=== PATIENT | male | born 1945 | race Caucasian/White ===

== ENCOUNTER 2016-08-29 09:11 | Inpatient (IN) | payer OTHER, BC ==
[~2016-08-29] VITALS: Ht 177.8 cm; Wt 132.0 kg
[~2016-08-29 09:11] MED LIST: ALLEGRA ALLERGY60 MG PO; ALLEGRA180 MG PO; ALPRAZOLAM0.25 MG PO; ASPIRIN E.C.81 M1 PO; ASPIRIN81 M1 PO; COUMADIN5 MG PO; COZAAR100 MG PO; Cardizem PO; Colchicine,Colcrys PO; DIGOXIN250 MCG PO; FUROSEMIDE40 MG PO; Flora-Q,Risaquad PO; GERITOL COMP1 TABLET PO; INDOMETHACIN25 MG PO; IRON325 M1 PO; LANOXIN,DIGIT0.25 MG PO; LASIX40 MG PO; LASIX80 MG PO; LIPITOR80 MG PO; LOPRESSOR25 MG PO; LOW DOSE ASPIRI81 M2 PO; Lasix PO; Levaquin PO; Lopressor PO; METAMUCIL CAPSU1 CAP PO; METOPROLOL SUCC25 MG PO; METOPROLOL TAR100 MG PO; METOPROLOL TART25 MG PO; MUCINEX1200 MG PO; NORVASC10 MG PO; OMEPRAZOLE40 M1 PO; Pradaxa PO; Prilosec PO; TIAZAC360 MG PO; TYLENOL EXTRA500 MG PO; Ultram PO; XARELTO15 MG PO; ZESTRIL,PRINIVI40 MG PO; ZYLOPRIM300 MG PO
[2016-08-29 09:43] LABS: HEMATOCRIT 47.4 % (38.0-50.0); MCHC 33.3 G/DL (30.0-36.0); MEAN PLAT.VOLUME 9.4 uM^3 (9.0-12.4); PLATELET COUNT 135 K/uL (156-360); RBC DIS.WIDTH-CV 14.7 % (11.8-14.6); RBC DIS.WIDTH-SD 48.6 % (39-53); RED BLOOD COUNT 4.94 M/uL (4.00-5.50); WHITE BLOOD COUNT 12.7 K/uL (4.1-10.2)
[2016-08-29 09:53] LABS: CHLORIDE 104 mEq/L (99-109); SODIUM 141 mEq/L (136-147)
[2016-08-29 09:54] LABS: GLUCOSE 121 mg/dL (70-99)
[2016-08-29 09:56] LABS: ANION GAP 14 MEQ/L (2-14)
[2016-08-29 09:58] LABS: GFR ESTIMATE (CALCULATED) 40 mL/min/
[2016-08-29 09:59] LABS: UREA NITROGEN (BUN) 25 mg/dL (9-23)
[2016-08-29] MEDS ORDERED: CARDIZEM CD,CA240 MG PO (12:50)
[2016-08-29 13:52] LABS: TROP-I INTERPRETATION NEGATIVE; TROPONIN-I 0.05 ng/mL (0.0-0.30)
[2016-08-29] MEDS ORDERED: ARTHRO PO (15:59)
[2016-08-29 17:33] VITALS: BP 145/96
[2016-08-29 19:47] VITALS: BP 109/69
[2016-08-29 22:04] VITALS: BP 131/95
[2016-08-30 00:52] VITALS: BP 140/88
[2016-08-30 04:25] VITALS: BP 148/91
[2016-08-30 07:07] LABS: HEMATOCRIT 46.2 % (38.0-50.0); MCH 31.6 PG (29.0-34.0); MCHC 32.3 G/DL (30.0-36.0); MCV 98.1 FL (86-99); PLATELET COUNT 136 K/uL (156-360); RBC DIS.WIDTH-CV 14.7 % (11.8-14.6); RED BLOOD COUNT 4.71 M/uL (4.00-5.50); WHITE BLOOD COUNT 10.6 K/uL (4.1-10.2)
[2016-08-30 07:36] LABS: ANION GAP 11 MEQ/L (2-14); CHLORIDE 102 MEQ/L (99-109); GFR ESTIMATE (CALCULATED) 49 mL/min/; GLUCOSE 108 mg/dL (70-99); POTASSIUM 3.8 MEQ/L (3.7-5.4); SAMPLE HEMOLYSIS CHECK 0; SAMPLE ICTERIC CHECK 1; SAMPLE LIPEMIA CHECK 0; SODIUM 140 MEQ/L (136-147); UREA NITROGEN (BUN) 29 mg/dL (9-23)
[2016-08-30 07:48] VITALS: BP 137/85
[2016-08-30 11:42] VITALS: BP 141/98
[2016-08-30 15:39] VITALS: BP 135/83
[2016-08-30 20:08] VITALS: BP 137/97
[2016-08-31 00:35] VITALS: BP 145/98
[2016-08-31 04:09] VITALS: BP 141/91
[2016-08-31 07:45] VITALS: BP 143/95
[2016-08-31 08:44] LABS: HEMATOCRIT 47.1 % (38.0-50.0); MCH 32.3 PG (29.0-34.0); MCHC 32.7 G/DL (30.0-36.0); MCV 98.7 FL (86-99); PLATELET COUNT 132 K/uL (156-360); RBC DIS.WIDTH-CV 14.7 % (11.8-14.6); RBC DIS.WIDTH-SD 52.7 % (39-53); RED BLOOD COUNT 4.77 M/uL (4.00-5.50); WHITE BLOOD COUNT 9.3 K/uL (4.1-10.2)
[2016-08-31 09:07] LABS: ANION GAP 9 MEQ/L (2-14); CHLORIDE 101 MEQ/L (99-109); GFR ESTIMATE (CALCULATED) 46 mL/min/; GLUCOSE 107 mg/dL (70-99); SAMPLE HEMOLYSIS CHECK 0; SAMPLE ICTERIC CHECK 0; SAMPLE LIPEMIA CHECK 0; SODIUM 141 MEQ/L (136-147); UREA NITROGEN (BUN) 32 mg/dL (9-23)
[2016-08-31 11:32] VITALS: BP 133/85
[2016-08-31 15:16] VITALS: BP 136/79
[2016-08-31 19:58] VITALS: BP 115/87
[2016-09-01] VITALS: BP 145/82; BP 172/98
[2016-09-01 05:08] VITALS: BP 152/78
[2016-09-01 07:31] VITALS: BP 136/89
[2016-09-01 09:07] LABS: ANION GAP 10 MEQ/L (2-14); CHLORIDE 102 MEQ/L (99-109); GFR ESTIMATE (CALCULATED) 49 mL/min/; GLUCOSE 92 mg/dL (70-99); POTASSIUM 4.1 MEQ/L (3.7-5.4); SAMPLE HEMOLYSIS CHECK 0; SAMPLE ICTERIC CHECK 0; SAMPLE LIPEMIA CHECK 0; SODIUM 142 MEQ/L (136-147); UREA NITROGEN (BUN) 29 mg/dL (9-23)
[2016-09-01 11:02] VITALS: BP 136/89
[2016-09-01] MEDS ORDERED: FUROSEMIDE40 MG PO (11:47)
[2016-09-01] MEDS ORDERED: LISINOPRIL5 MG PO (11:47)
[2016-09-01] MEDS ORDERED: SPIRONOLACTONE25 MG PO (11:47)
== END 2016-09-01 13:50 | disposition home or self-care (01) | DRG 291 ==
LOC: EME 09:11 → 5SOUTH 15:22 → EDOF 15:22 → 5SOUTH 15:22
PROVIDERS: Emergency Medicine; Hospitalist; Internal Medicine Cardiovascular Disease; Physician Assistant; Physician Assistant Medical
DX: I13.0 Hypertensive heart and chronic kidney disease with heart failure and stage 1 through stage 4 chronic kidney disease, or unspecified chronic kidney disease (principal); I50.43 Acute on chronic combined systolic (congestive) and diastolic (congestive) heart failure; D69.6 Thrombocytopenia, unspecified; Z68.41 Body mass index [BMI] 40.0-44.9, adult; N18.3 Chronic kidney disease, stage 3 (moderate); I48.1 Persistent atrial fibrillation; E66.01 Morbid (severe) obesity due to excess calories; Z95.2 Presence of prosthetic heart valve; Z91.19 Patient's noncompliance with other medical treatment and regimen; Z66 Do not resuscitate; R09.02 Hypoxemia; Z90.49 Acquired absence of other specified parts of digestive tract; K59.00 Constipation, unspecified
CPT/HCPCS: 71020; 80048; 84484; 85027; 93005; 93306; 94799; 99281; 99284; J1940

== ENCOUNTER 2016-10-18 08:19 | Inpatient (IN) | payer OTHER, BC ==
[~2016-10-18] VITALS: Ht 177.8 cm; Wt 125.9 kg
[~2016-10-18 08:19] MED LIST changes: +ARTHRO PO; +CARDIZEM CD,CA240 MG PO; +LISINOPRIL5 MG PO; +SPIRONOLACTONE25 MG PO
[2016-10-18 08:54] LABS: EOSINOPHIL (%) 0.7 % (0-5); EOSINOPHIL COUNT 0.1 K/uL (0-0.3); HEMATOCRIT 52.7 % (38.0-50.0); IMMATURE GRANULOCYTE (%) 1.3 % (0.0-0.7); IMMATURE GRANULOCYTE COUNT 1.2 K/uL; LYMPHOCYTE COUNT 1.2 K/uL (1.0-2.8); MCH 31.6 PG (29.0-34.0); MCHC 32.6 G/DL (30.0-36.0); MCV 96.7 FL (86-99); MEAN PLAT.VOLUME 10.6 uM^3 (9.0-12.4); MONOCYTE (%) 13.3 % (3-12); MONOCYTE COUNT 1.3 K/uL (0-0.8); NEUTROPHIL (%) 72.3 % (45-76); NEUTROPHIL COUNT 6.9 K/uL (1.8-6.4); PLATELET COUNT 101 K/uL (156-360); RBC DIS.WIDTH-CV 14.9 % (11.8-14.6); RED BLOOD COUNT 5.45 M/uL (4.00-5.50); WHITE BLOOD COUNT 9.6 K/uL (4.1-10.2)
[2016-10-18 09:05] LABS: CHLORIDE 102 mEq/L (99-109); POTASSIUM 4.9 mEq/L (3.7-5.4); SODIUM 138 mEq/L (136-147)
[2016-10-18 09:06] LABS: INTER. NORMALIZED RATIO 1.5; PROTHROMBIN TIME 15.1 (9.2-11.2)
[2016-10-18 09:08] LABS: GLUCOSE 120 mg/dL (70-99)
[2016-10-18 09:09] LABS: ANION GAP 13 MEQ/L (2-14)
[2016-10-18 09:10] LABS: TOTAL BILIRUBIN 1.7 mg/dL (0.0-1.0)
[2016-10-18 09:11] LABS: ALKALINE PHOSPHATASE 100 IU/L (3-129)
[2016-10-18 09:12] LABS: GFR ESTIMATE (CALCULATED) 21 mL/min/
[2016-10-18 09:13] LABS: UREA NITROGEN (BUN) 58 mg/dL (9-23)
[2016-10-18 09:18] LABS: TROP-I INTERPRETATION NEGATIVE; TROPONIN-I 0.08 ng/mL (0.0-0.30)
[2016-10-18 09:39] LABS: INFLUENZA A VIRAL ANTIGEN NEGATIVE; INFLUENZA B VIRAL ANTIGEN NEGATIVE
[2016-10-18] MEDS ORDERED: LISINOPRIL10 MG PO (10:57)
[2016-10-18] MEDS ORDERED: LASIX40 MG PO (10:59)
[2016-10-18] MEDS ORDERED: TYLENOL ARTHRI650 MG PO (11:00)
[2016-10-18 14:03] LABS: ADD MIUA? NO; BILIRUBIN NEGATIVE; BLOOD NEGATIVE; COLOR YELLOW ((YELLOW)); GLUCOSE (STRIP) NEGATIVE; KETONES NEGATIVE; LEUKOCYTES NEGATIVE; NITRITE NEGATIVE; PROTEIN (STRIP) 30; UROBILINOGEN 0.2 MG/DL (0.2-1.0)
[2016-10-18 15:36] LABS: TROP-I INTERPRETATION NEGATIVE; TROPONIN-I 0.08 ng/mL (0.0-0.30)
[2016-10-18 19:25] VITALS: BP 132/90
[2016-10-18 21:53] LABS: TROP-I INTERPRETATION NEGATIVE; TROPONIN-I 0.11 ng/mL (0.0-0.30)
[2016-10-19 00:30] VITALS: BP 121/88
[2016-10-19 04:27] VITALS: BP 113/73
[2016-10-19 07:37] LABS: HEMATOCRIT 51.1 % (38.0-50.0); MCH 32.5 PG (29.0-34.0); MCHC 32.5 G/DL (30.0-36.0); MEAN PLAT.VOLUME 11.5 uM^3 (9.0-12.4); PLATELET COUNT 91 K/uL (156-360); RBC DIS.WIDTH-CV 14.8 % (11.8-14.6); RED BLOOD COUNT 5.11 M/uL (4.00-5.50); WHITE BLOOD COUNT 8.5 K/uL (4.1-10.2)
[2016-10-19 07:41] LABS: ALKALINE PHOSPHATASE 83 IU/L (3-129); ANION GAP 11 MEQ/L (2-14); CHLORIDE 99 MEQ/L (99-109); GFR ESTIMATE (CALCULATED) 23 mL/min/; GLUCOSE 99 mg/dL (70-99); POTASSIUM 4.9 MEQ/L (3.7-5.4); SAMPLE HEMOLYSIS CHECK 0; SAMPLE ICTERIC CHECK 0; SAMPLE LIPEMIA CHECK 0; SODIUM 139 MEQ/L (136-147); TOTAL BILIRUBIN 2.1 MG/DL (0.0-1.0); UREA NITROGEN (BUN) 63 mg/dL (9-23)
[2016-10-19 09:00] VITALS: BP 120/80
[2016-10-19 12:00] VITALS: BP 123/86
[2016-10-19 18:20] VITALS: BP 102/75
[2016-10-19 20:25] VITALS: BP 121/73
[2016-10-20 00:29] VITALS: BP 110/77
[2016-10-20 05:29] VITALS: BP 121/87
[2016-10-20 07:21] LABS: DELETE MACHINE DIFF? YES
[2016-10-20 07:22] LABS: HEMATOCRIT 51.6 % (38.0-50.0); MCH 31.5 PG (29.0-34.0); MCV 98.5 FL (86-99); RBC DIS.WIDTH-SD 54.1 % (39-53); RED BLOOD COUNT 5.24 M/uL (4.00-5.50); WHITE BLOOD COUNT 8.4 K/uL (4.1-10.2)
[2016-10-20 07:30] VITALS: BP 117/82
[2016-10-20 07:49] LABS: ANION GAP 11 MEQ/L (2-14); CHLORIDE 98 MEQ/L (99-109); GFR ESTIMATE (CALCULATED) 27 mL/min/; GLUCOSE 84 mg/dL (70-99); MAGNESIUM 2.2 mg/dl (1.3-2.7); POTASSIUM 4.2 MEQ/L (3.7-5.4); SAMPLE HEMOLYSIS CHECK 0; SAMPLE ICTERIC CHECK 0; SAMPLE LIPEMIA CHECK 0; SODIUM 137 MEQ/L (136-147); UREA NITROGEN (BUN) 60 mg/dL (9-23)
[2016-10-20 08:42] LABS: ANISOCYTOSIS 1+; MEAN PLAT.VOLUME 11.2 uM^3 (9.0-12.4); PLAT.SUFFICIENCY DECREASED; PLATELET COUNT 100 K/uL (156-360); SMUDGE CELLS 0; USER ID STC
[2016-10-20 11:29] VITALS: BP 107/67
[2016-10-20 14:45] LABS: HBSG INDEX 0.19
[2016-10-20 14:46] LABS: HPCA INDEX 0.15
[2016-10-20 14:47] LABS: ANTI-HEPATITIS A VIRUS (IGM) Nonreactive; HAV INDEX 0.13
[2016-10-20 14:48] LABS: ANTI-HEPATITIS B CORE (IGM) Nonreactive; HBC IgM INDEX 0.07
[2016-10-20] MEDS ORDERED: SPIRONOLACTONE50 MG PO (15:30)
[2016-10-20] MEDS ORDERED: METOLAZONE2.5 MG PO (15:31)
== END 2016-10-20 17:22 | disposition home or self-care (01) | DRG 291 ==
LOC: EME 08:19 → 4EAST 10:25 → EDOF 10:25 → 4EAST 19:16
PROVIDERS: Emergency Medicine; Internal Medicine; Internal Medicine Nephrology
DX: I13.0 Hypertensive heart and chronic kidney disease with heart failure and stage 1 through stage 4 chronic kidney disease, or unspecified chronic kidney disease (principal); I50.43 Acute on chronic combined systolic (congestive) and diastolic (congestive) heart failure; N17.9 Acute kidney failure, unspecified; I95.9 Hypotension, unspecified; Q61.3 Polycystic kidney, unspecified; I27.2 Other secondary pulmonary hypertension; N18.3 Chronic kidney disease, stage 3 (moderate); I48.2 Chronic atrial fibrillation; K74.60 Unspecified cirrhosis of liver; Z95.2 Presence of prosthetic heart valve; Z79.01 Long term (current) use of anticoagulants; E66.9 Obesity, unspecified; Z68.36 Body mass index [BMI] 36.0-36.9, adult
CPT/HCPCS: 71010; 71250; 76770; 80048; 80053; 80074; 81003; 83605; 83735; 83880; 84100; 84443; 84484; 85025; 85027; 85610; 87502; 93005; 93306; 94799; 99281; 99285; J1160; J1940

== ENCOUNTER 2017-07-21 00:41 | Inpatient (IN) | payer OTHER, BC ==
[~2017-07-21] VITALS: Ht 175.3 cm; Wt 128.3 kg
[~2017-07-21 00:41] MED LIST changes: +LASIX20 MG PO; +LISINOPRIL10 MG PO; +METOLAZONE2.5 MG PO; +METOLAZONE5 MG PO; +SPIRONOLACTONE50 MG PO; +TYLENOL ARTHRI650 MG PO
[2017-07-21 01:31] LABS: PROTHROMBIN TIME 33.9 SEC (10.2-12.9)
[2017-07-21 01:34] LABS: PTT 40.2 SEC (25-37)
[2017-07-21 01:38] LABS: CHLORIDE 106 mEq/L (99-109); HEMATOCRIT 48.7 % (38.0-50.0); MCH 31.9 PG (29.0-34.0); MCHC 32.9 G/DL (30.0-36.0); MCV 97.2 FL (86-99); MEAN PLAT.VOLUME 10.5 uM^3 (9.0-12.4); PLATELET COUNT 137 K/uL (156-360); POTASSIUM 4.1 mEq/L (3.7-5.4); RBC DIS.WIDTH-CV 14.6 % (11.8-14.6); RBC DIS.WIDTH-SD 51.3 % (39-53); RED BLOOD COUNT 5.01 M/uL (4.00-5.50); SODIUM 138 mEq/L (136-147); WHITE BLOOD COUNT 10.1 K/uL (4.1-10.2)
[2017-07-21 01:40] LABS: GLUCOSE 121 mg/dL (70-99)
[2017-07-21 01:41] LABS: ANION GAP 14 MEQ/L (2-14)
[2017-07-21 01:44] LABS: GFR ESTIMATE (CALCULATED) 27 mL/min/
[2017-07-21 01:45] LABS: UREA NITROGEN (BUN) 53 mg/dL (9-23)
[2017-07-21 01:47] LABS: TROP-I INTERPRETATION NEGATIVE; TROPONIN-I 0.09 ng/mL (0.0-0.30)
[2017-07-21 04:22] VITALS: BP 121/87
[2017-07-21 07:14] LABS: TROP-I INTERPRETATION NEGATIVE; TROPONIN-I 0.08 ng/mL (0.0-0.30)
[2017-07-21 07:21] VITALS: BP 121/84
[2017-07-21 07:52] LABS: HDL CHOLESTEROL 18 MG/DL (Desirable>=40); LDL CHOLESTEROL 86 mg/dL (Desirable<100); NON-HDL CHOLESTEROL 106 mg/dL (Desirable<160); TOTAL CHOLESTEROL 124 mg/dL (Desirable<200); TRIGLYCERIDES 101 MG/DL (Normal: <150)
[2017-07-21 11:33] VITALS: BP 138/82
[2017-07-21 14:41] LABS: TROP-I INTERPRETATION NEGATIVE; TROPONIN-I 0.06 ng/mL (0.0-0.30)
[2017-07-21 15:16] VITALS: BP 119/92
[2017-07-21 19:05] VITALS: BP 129/82
[2017-07-21 20:45] LABS: METH RESISTANT S AUREUS PCR NEGATIVE (NEGATIVE)
[2017-07-21 20:57] LABS: PROBE CHECK PASS; SPECIMEN PROCESSING CONTROL PASS
[2017-07-21 23:48] VITALS: BP 138/98
[2017-07-22 04:13] VITALS: BP 128/83
[2017-07-22 05:57] LABS: ANION GAP 12 MEQ/L (2-14); CHLORIDE 104 MEQ/L (99-109); GFR ESTIMATE (CALCULATED) 27 mL/min/; GLUCOSE 116 mg/dL (70-99); POTASSIUM 4.6 MEQ/L (3.7-5.4); SAMPLE HEMOLYSIS CHECK 1; SAMPLE ICTERIC CHECK 0; SAMPLE LIPEMIA CHECK 0; SODIUM 140 MEQ/L (136-147); UREA NITROGEN (BUN) 61 mg/dL (9-23)
[2017-07-22 07:59] VITALS: BP 140/81
[2017-07-22 11:13] VITALS: BP 118/80
[2017-07-22 16:30] VITALS: BP 143/76
[2017-07-22 19:22] VITALS: BP 125/92
[2017-07-23] VITALS (7 sets, daily range): BP systolic 98–123; BP diastolic 60–93
[2017-07-23 05:19] LABS: BASOPHIL COUNT 0.1 K/uL (0-0.1); EOSINOPHIL (%) 1.1 % (0-5); EOSINOPHIL COUNT 0.1 K/uL (0-0.3); HEMATOCRIT 47.9 % (38.0-50.0); IMMATURE GRANULOCYTE (%) 0.4 % (0.0-0.7); IMMATURE GRANULOCYTE COUNT 0.1 K/uL; INSTRUMENT ABS NEUTROPHIL CT 9.4 K/uL; LYMPHOCYTE COUNT 1.2 K/uL (1.0-2.8); MCH 32.1 PG (29.0-34.0); MCHC 32.6 G/DL (30.0-36.0); MCV 98.6 FL (86-99); MEAN PLAT.VOLUME 10.8 uM^3 (9.0-12.4); MONOCYTE (%) 10.8 % (3-12); MONOCYTE COUNT 1.3 K/uL (0-0.8); NEUTROPHIL (%) 77.5 % (45-76); NEUTROPHIL COUNT 9.4 K/uL (1.8-6.4); PLATELET COUNT 143 K/uL (156-360); RBC DIS.WIDTH-CV 14.9 % (11.8-14.6); RBC DIS.WIDTH-SD 52.8 % (39-53); RED BLOOD COUNT 4.86 M/uL (4.00-5.50); WHITE BLOOD COUNT 12.1 K/uL (4.1-10.2)
[2017-07-23 06:02] LABS: ANION GAP 13 MEQ/L (2-14); CHLORIDE 102 MEQ/L (99-109); GFR ESTIMATE (CALCULATED) 23 mL/min/; GLUCOSE 101 mg/dL (70-99); POTASSIUM 5.2 MEQ/L (3.7-5.4); SAMPLE HEMOLYSIS CHECK 0; SAMPLE ICTERIC CHECK 0; SAMPLE LIPEMIA CHECK 0; SODIUM 139 MEQ/L (136-147); UREA NITROGEN (BUN) 68 mg/dL (9-23)
[2017-07-23 23:30] LABS: BASOPHIL COUNT 0.1 K/uL (0-0.1); EOSINOPHIL (%) 1.2 % (0-5); EOSINOPHIL COUNT 0.1 K/uL (0-0.3); HEMATOCRIT 47.2 % (38.0-50.0); IMMATURE GRANULOCYTE (%) 0.4 % (0.0-0.7); IMMATURE GRANULOCYTE COUNT 0.1 K/uL; INSTRUMENT ABS NEUTROPHIL CT 8.5 K/uL; LYMPHOCYTE COUNT 1.2 K/uL (1.0-2.8); MCH 31.6 PG (29.0-34.0); MCHC 32.2 G/DL (30.0-36.0); MCV 98.1 FL (86-99); MEAN PLAT.VOLUME 10.4 uM^3 (9.0-12.4); MONOCYTE (%) 11.1 % (3-12); MONOCYTE COUNT 1.2 K/uL (0-0.8); NEUTROPHIL (%) 76.5 % (45-76); NEUTROPHIL COUNT 8.5 K/uL (1.8-6.4); PLATELET COUNT 147 K/uL (156-360); RBC DIS.WIDTH-CV 14.7 % (11.8-14.6); RED BLOOD COUNT 4.81 M/uL (4.00-5.50); WHITE BLOOD COUNT 11.2 K/uL (4.1-10.2)
[2017-07-23 23:36] LABS: INTER. NORMALIZED RATIO 3.5; PROTHROMBIN TIME 40.1 SEC (10.2-12.9)
[2017-07-23 23:38] LABS: CHLORIDE 104 mEq/L (99-109); POTASSIUM 4.2 mEq/L (3.7-5.4); SODIUM 135 mEq/L (136-147)
[2017-07-23 23:41] LABS: GLUCOSE 115 mg/dL (70-99)
[2017-07-23 23:42] LABS: ANION GAP 9 MEQ/L (2-14)
[2017-07-23 23:43] LABS: TOTAL BILIRUBIN 2.1 mg/dL (0.0-1.0)
[2017-07-23 23:44] LABS: ALKALINE PHOSPHATASE 85 IU/L (3-129); GFR ESTIMATE (CALCULATED) 24 mL/min/
[2017-07-23 23:45] LABS: UREA NITROGEN (BUN) 73 mg/dL (9-23)
[2017-07-23 23:56] LABS: ERTH.SED.RATE 6 MM/HR (0-20)
[2017-07-24 00:33] VITALS: BP 109/76
[2017-07-24 01:23] LABS: ADD MIUA? NO; BILIRUBIN NEGATIVE; BLOOD NEGATIVE; COLOR YELLOW ((YELLOW)); GLUCOSE (STRIP) NEGATIVE; KETONES NEGATIVE; LEUKOCYTES NEGATIVE; NITRITE NEGATIVE; PROTEIN (STRIP) NEGATIVE; SPECIFIC GRAVITY 1.012 (1.000-1.030); UCUL ADDED? NO; UROBILINOGEN 0.2 MG/DL (0.2-1.0)
[2017-07-24 04:00] VITALS: BP 128/82
[2017-07-24 05:22] LABS: BASOPHIL COUNT 0.1 K/uL (0-0.1); EOSINOPHIL COUNT 0.1 K/uL (0-0.3); HEMATOCRIT 45.7 % (38.0-50.0); IMMATURE GRANULOCYTE (%) 0.5 % (0.0-0.7); IMMATURE GRANULOCYTE COUNT 0.1 K/uL; INSTRUMENT ABS NEUTROPHIL CT 9.6 K/uL; LYMPHOCYTE COUNT 1.1 K/uL (1.0-2.8); MCHC 32.6 G/DL (30.0-36.0); MCV 98.3 FL (86-99); MEAN PLAT.VOLUME 10.6 uM^3 (9.0-12.4); MONOCYTE (%) 11.1 % (3-12); MONOCYTE COUNT 1.4 K/uL (0-0.8); NEUTROPHIL (%) 77.9 % (45-76); NEUTROPHIL COUNT 9.6 K/uL (1.8-6.4); PLATELET COUNT 140 K/uL (156-360); RBC DIS.WIDTH-CV 14.8 % (11.8-14.6); RBC DIS.WIDTH-SD 52.3 % (39-53); RED BLOOD COUNT 4.65 M/uL (4.00-5.50); WHITE BLOOD COUNT 12.3 K/uL (4.1-10.2)
[2017-07-24 06:00] LABS: ANION GAP 12 MEQ/L (2-14); CHLORIDE 105 MEQ/L (99-109); GFR ESTIMATE (CALCULATED) 26 mL/min/; GLUCOSE 116 mg/dL (70-99); POTASSIUM 4.2 MEQ/L (3.7-5.4); SAMPLE HEMOLYSIS CHECK 0; SAMPLE ICTERIC CHECK 0; SAMPLE LIPEMIA CHECK 0; SODIUM 139 MEQ/L (136-147); UREA NITROGEN (BUN) 70 mg/dL (9-23)
[2017-07-24 08:00] VITALS: BP 120/86
[2017-07-24 11:33] VITALS: BP 105/78
[2017-07-24 15:07] VITALS: BP 107/74
[2017-07-24] MEDS ORDERED: ATORVASTATIN CA40 MG PO (17:00)
[2017-07-24] MEDS ORDERED: FUROSEMIDE40 MG PO (17:01)
[2017-07-25] MEDS ORDERED: LIPITOR40 MG PO (22:21)
[2017-07-25] MEDS ORDERED: LASIX40 MG PO (22:22)
== END 2017-07-24 18:09 | disposition home health service (06) | DRG 291 ==
LOC: EME 00:41 → EDOF 03:23 → ENRESERV 03:27 → 5WEST 04:00
PROVIDERS: Hospitalist; Internal Medicine; Physician Assistant Medical
DX: I13.0 Hypertensive heart and chronic kidney disease with heart failure and stage 1 through stage 4 chronic kidney disease, or unspecified chronic kidney disease (principal); I50.43 Acute on chronic combined systolic (congestive) and diastolic (congestive) heart failure; N18.3 Chronic kidney disease, stage 3 (moderate); N17.9 Acute kidney failure, unspecified; T50.2X5A Adverse effect of carbonic-anhydrase inhibitors, benzothiadiazides and other diuretics, initial encounter; R41.0 Disorientation, unspecified; R79.1 Abnormal coagulation profile; T45.515A Adverse effect of anticoagulants, initial encounter; E83.119 Hemochromatosis, unspecified; F41.9 Anxiety disorder, unspecified; I27.20 Pulmonary hypertension, unspecified; I48.1 Persistent atrial fibrillation; K74.60 Unspecified cirrhosis of liver; M10.9 Gout, unspecified; F32.9 Major depressive disorder, single episode, unspecified; R35.1 Nocturia; D69.6 Thrombocytopenia, unspecified; E66.9 Obesity, unspecified; Z68.41 Body mass index [BMI] 40.0-44.9, adult; Z95.3 Presence of xenogenic heart valve; Z79.01 Long term (current) use of anticoagulants; Q61.3 Polycystic kidney, unspecified
CPT/HCPCS: 71010; 71020; 80048; 80053; 80061; 81003; 82607; 82746; 83605; 83880; 84443; 84484; 85025; 85025 91; 85027; 85610; 85651; 85730; 87040; 87070; 87205; 87641; 93005; G0378; J1940

== ENCOUNTER 2017-07-25 17:21 | Inpatient (IN) | payer OTHER, BC ==
[~2017-07-25] VITALS: Ht 175.3 cm; Wt 119.2 kg
[~2017-07-25 17:21] MED LIST changes: +ATORVASTATIN CA40 MG PO
[2017-07-25 17:57] LABS: HEMATOCRIT 48.2 % (38.0-50.0); MCH 31.5 PG (29.0-34.0); MCHC 32.2 G/DL (30.0-36.0); MEAN PLAT.VOLUME 10.5 uM^3 (9.0-12.4); PLATELET COUNT 146 K/uL (156-360); RBC DIS.WIDTH-CV 14.6 % (11.8-14.6); RBC DIS.WIDTH-SD 52.2 % (39-53); RED BLOOD COUNT 4.92 M/uL (4.00-5.50); WHITE BLOOD COUNT 11.8 K/uL (4.1-10.2)
[2017-07-25 18:09] LABS: CHLORIDE 102 mEq/L (99-109); POTASSIUM 3.8 mEq/L (3.7-5.4); SODIUM 140 mEq/L (136-147)
[2017-07-25 18:11] LABS: GLUCOSE 140 mg/dL (70-99)
[2017-07-25 18:12] LABS: ANION GAP 14 MEQ/L (2-14)
[2017-07-25 18:15] LABS: GFR ESTIMATE (CALCULATED) 26 mL/min/
[2017-07-25 18:16] LABS: UREA NITROGEN (BUN) 66 mg/dL (9-23)
[2017-07-25 18:26] LABS: TROP-I INTERPRETATION NEGATIVE; TROPONIN-I 0.06 ng/mL (0.0-0.30)
[2017-07-25] MEDS ORDERED: LIPITOR40 MG PO (22:21)
[2017-07-25] MEDS ORDERED: LASIX40 MG PO (22:22)
[2017-07-26 01:45] LABS: TROP-I INTERPRETATION NEGATIVE; TROPONIN-I 0.06 ng/mL (0.0-0.30)
[2017-07-26 02:07] VITALS: BP 130/98
[2017-07-26 06:40] LABS: HEMATOCRIT 49.1 % (38.0-50.0); MCHC 31.8 G/DL (30.0-36.0); MCV 97.4 FL (86-99); MEAN PLAT.VOLUME 10.3 uM^3 (9.0-12.4); PLATELET COUNT 157 K/uL (156-360); RBC DIS.WIDTH-CV 14.7 % (11.8-14.6); RBC DIS.WIDTH-SD 52.7 % (39-53); RED BLOOD COUNT 5.04 M/uL (4.00-5.50); WHITE BLOOD COUNT 13.8 K/uL (4.1-10.2)
[2017-07-26 06:49] LABS: TROP-I INTERPRETATION NEGATIVE; TROPONIN-I 0.06 ng/mL (0.0-0.30)
[2017-07-26 06:56] LABS: ANION GAP 12 MEQ/L (2-14); CHLORIDE 101 MEQ/L (99-109); GFR ESTIMATE (CALCULATED) 29 mL/min/; GLUCOSE 92 mg/dL (70-99); POTASSIUM 3.6 MEQ/L (3.7-5.4); SAMPLE HEMOLYSIS CHECK 0; SAMPLE ICTERIC CHECK 0; SAMPLE LIPEMIA CHECK 0; SODIUM 141 MEQ/L (136-147); UREA NITROGEN (BUN) 68 mg/dL (9-23)
[2017-07-26 08:30] VITALS: BP 104/70
[2017-07-26 12:22] VITALS: BP 109/60
[2017-07-26 16:12] VITALS: BP 122/78
[2017-07-26 20:03] VITALS: BP 105/73
[2017-07-26 22:08] VITALS: BP 105/68
[2017-07-27 05:24] VITALS: BP 117/82
[2017-07-27 07:33] VITALS: BP 104/78
[2017-07-27 09:11] LABS: HEMATOCRIT 48.6 % (38.0-50.0); MCH 30.6 PG (29.0-34.0); MCHC 31.9 G/DL (30.0-36.0); MCV 95.9 FL (86-99); MEAN PLAT.VOLUME 10.2 uM^3 (9.0-12.4); PLATELET COUNT 160 K/uL (156-360); RBC DIS.WIDTH-CV 14.6 % (11.8-14.6); RED BLOOD COUNT 5.07 M/uL (4.00-5.50)
[2017-07-27 09:37] LABS: ANION GAP 10 MEQ/L (2-14); CHLORIDE 100 MEQ/L (99-109); GFR ESTIMATE (CALCULATED) 30 mL/min/; GLUCOSE 105 mg/dL (70-99); SAMPLE HEMOLYSIS CHECK 0; SAMPLE ICTERIC CHECK 0; SAMPLE LIPEMIA CHECK 0; SODIUM 138 MEQ/L (136-147); UREA NITROGEN (BUN) 67 mg/dL (9-23)
[2017-07-27 09:40] LABS: POTASSIUM 4.5 MEQ/L (3.7-5.4)
[2017-07-27 12:20] VITALS: BP 116/77
[2017-07-27 13:28] LABS: ADD MIUA? NO; BILIRUBIN NEGATIVE; BLOOD NEGATIVE; COLOR YELLOW ((YELLOW)); GLUCOSE (STRIP) NEGATIVE; KETONES NEGATIVE; LEUKOCYTES NEGATIVE; NITRITE NEGATIVE; PROTEIN (STRIP) NEGATIVE; SPECIFIC GRAVITY 1.013 (1.000-1.030); UCUL ADDED? NO; UROBILINOGEN 0.2 MG/DL (0.2-1.0)
[2017-07-27 16:17] VITALS: BP 122/80
[2017-07-27 19:14] VITALS: BP 109/77
[2017-07-27 23:56] VITALS: BP 94/75
[2017-07-28 07:03] LABS: HEMATOCRIT 48.6 % (38.0-50.0); MCH 31.3 PG (29.0-34.0); MCHC 32.1 G/DL (30.0-36.0); MCV 97.4 FL (86-99); MEAN PLAT.VOLUME 10.3 uM^3 (9.0-12.4); PLATELET COUNT 161 K/uL (156-360); RBC DIS.WIDTH-SD 53.1 % (39-53); RED BLOOD COUNT 4.99 M/uL (4.00-5.50); WHITE BLOOD COUNT 13.1 K/uL (4.1-10.2)
[2017-07-28 07:28] LABS: ANION GAP 11 MEQ/L (2-14); CHLORIDE 97 MEQ/L (99-109); GFR ESTIMATE (CALCULATED) 29 mL/min/; GLUCOSE 109 mg/dL (70-99); SAMPLE HEMOLYSIS CHECK 0; SAMPLE ICTERIC CHECK 0; SAMPLE LIPEMIA CHECK 0; SODIUM 139 MEQ/L (136-147); UREA NITROGEN (BUN) 66 mg/dL (9-23)
[2017-07-28 07:37] VITALS: BP 93/66
[2017-07-28 11:46] VITALS: BP 100/68
[2017-07-28 16:58] VITALS: BP 98/78
[2017-07-28 19:32] VITALS: BP 115/80
[2017-07-28 23:10] VITALS: BP 118/82
[2017-07-29 03:15] VITALS: BP 110/65
[2017-07-29 07:17] LABS: BASOPHIL COUNT 0.1 K/uL (0-0.1); EOSINOPHIL (%) 1.1 % (0-5); EOSINOPHIL COUNT 0.1 K/uL (0-0.3); IMMATURE GRANULOCYTE (%) 0.5 % (0.0-0.7); IMMATURE GRANULOCYTE COUNT 0.1 K/uL; INSTRUMENT ABS NEUTROPHIL CT 9.2 K/uL; LYMPHOCYTE COUNT 1.1 K/uL (1.0-2.8); MCH 30.5 PG (29.0-34.0); MCHC 31.8 G/DL (30.0-36.0); MEAN PLAT.VOLUME 10.3 uM^3 (9.0-12.4); MONOCYTE (%) 12.2 % (3-12); MONOCYTE COUNT 1.5 K/uL (0-0.8); NEUTROPHIL (%) 76.7 % (45-76); NEUTROPHIL COUNT 9.2 K/uL (1.8-6.4); PLATELET COUNT 164 K/uL (156-360); RBC DIS.WIDTH-CV 14.7 % (11.8-14.6); RBC DIS.WIDTH-SD 51.9 % (39-53); RED BLOOD COUNT 5.21 M/uL (4.00-5.50); WHITE BLOOD COUNT 12.1 K/uL (4.1-10.2)
[2017-07-29 08:03] LABS: ANION GAP 12 MEQ/L (2-14); CHLORIDE 95 MEQ/L (99-109); GFR ESTIMATE (CALCULATED) 27 mL/min/; GLUCOSE 96 mg/dL (70-99); POTASSIUM 3.9 MEQ/L (3.7-5.4); SAMPLE HEMOLYSIS CHECK 0; SAMPLE ICTERIC CHECK 0; SAMPLE LIPEMIA CHECK 0; SODIUM 140 MEQ/L (136-147); UREA NITROGEN (BUN) 80 mg/dL (9-23)
[2017-07-29 08:29] VITALS: BP 107/78
[2017-07-29] MEDS ORDERED: FUROSEMIDE80 MG PO (11:30)
[2017-07-29 12:15] VITALS: BP 100/68
== END 2017-07-29 13:47 | disposition home health service (06) | DRG 291 ==
LOC: EME 17:21 → EDOF 07-26 00:04 → 5SOUTH 07-26 00:04 → ENRESERV 07-26 00:05 → 5SOUTH 07-26 01:42
PROVIDERS: Hospitalist; Internal Medicine; Physician Assistant Medical
DX: I13.0 Hypertensive heart and chronic kidney disease with heart failure and stage 1 through stage 4 chronic kidney disease, or unspecified chronic kidney disease (principal); I50.43 Acute on chronic combined systolic (congestive) and diastolic (congestive) heart failure; N17.9 Acute kidney failure, unspecified; N18.3 Chronic kidney disease, stage 3 (moderate); C34.90 Malignant neoplasm of unspecified part of unspecified bronchus or lung; Z95.2 Presence of prosthetic heart valve; E83.119 Hemochromatosis, unspecified; I27.20 Pulmonary hypertension, unspecified; I48.2 Chronic atrial fibrillation; D69.6 Thrombocytopenia, unspecified; D75.1 Secondary polycythemia; E66.01 Morbid (severe) obesity due to excess calories; E87.6 Hypokalemia; I25.10 Atherosclerotic heart disease of native coronary artery without angina pectoris; I42.8 Other cardiomyopathies; K21.9 Gastro-esophageal reflux disease without esophagitis; K74.60 Unspecified cirrhosis of liver; Z68.41 Body mass index [BMI] 40.0-44.9, adult; R09.02 Hypoxemia; D68.32 Hemorrhagic disorder due to extrinsic circulating anticoagulants; T45.515A Adverse effect of anticoagulants, initial encounter; M10.9 Gout, unspecified; E78.5 Hyperlipidemia, unspecified; Z91.19 Patient's noncompliance with other medical treatment and regimen; I36.1 Nonrheumatic tricuspid (valve) insufficiency
CPT/HCPCS: 71020; 80048; 81003; 83880; 84484; 85025; 85027; 87040; 87502; 93005; 94799; 99281; 99285; J1940